=== PATIENT | male | born 1955 | race Caucasian/White ===

== ENCOUNTER 2018-12-08 14:19 | Emergency (ER) | payer MEDICAID ==
[~2018-12-08] VITALS: Ht 172.7 cm; Wt 111.0 kg
[~2018-12-08 14:19] MED LIST: AMIT-106 PO; CLOP75TA15 PO; LOSA25TA41 PO; METF-950 PO; SIMV20TA5 PO; TAMS0.4C32 PO; TRAM50TA2 PO; TRAZ-218 PO
--- NOTE | 2018-12-08 14:30 | NUR ---
LEVEL 2 STROKE ALERT CALLED
--- NOTE | 2018-12-08 14:41 | NUR ---
PT TO CT VIA WHEELCHAIR WITH COLD STORAGE SUPERINTENDENT NOW PER ORDERS
[2018-12-08 14:51] LABS: BASOPHILS % (AUTO) 0.6 % (0-1); EOSINOPHILS # (AUTO) 0.1 X10'3 (0-0.9); EOSINOPHILS % (AUTO) 1.6 % (0-6); HEMATOCRIT 35.8 % (42.0-52.0); HEMOGLOBIN 11.8 g/dl (14.0-17.9); LYMPHOCYTES # (AUTO) 1.5 X10'3 (1.1-4.8); LYMPHOCYTES % (AUTO) 19.6 % (21-51); MEAN CORPUSCULAR HEMOGLOBIN 30.5 PG (27.0-31.0); MEAN CORPUSCULAR HGB CONC 32.9 % (33.0-36.5); MEAN CORPUSCULAR VOLUME 92.7 FL (78-98); MONOCYTES # (AUTO) 0.5 X10'3 (0-0.9); MONOCYTES % (AUTO) 7.3 % (2-12); NEUTROPHILS # (AUTO) 5.4 X10'3 (1.8-7.7); NEUTROPHILS % (AUTO) 70.9 % (42-75); PLATELET COUNT 165 X10'3 (140-440); RED BLOOD COUNT 3.87 X10'6 (4.70-6.10); RED CELL DISTRIBUTION WIDTH 13.9 % (11.5-14.5); WHITE BLOOD COUNT 7.5 X10'3 (4.5-11.0)
[2018-12-08 14:59] LABS: INR 1.1 INR; PARTIAL THROMBOPLASTIN TIME 25 SECONDS (22-32)
[2018-12-08 15:02] LABS: ALANINE AMINOTRANSFERASE 30 U/L (12-78); ALBUMIN/GLOBULIN RATIO 1.1 (1.1-1.5); ALKALINE PHOSPHATASE 56 IU/L (46-116); ANION GAP 10 (8-16); ASPARTATE AMINO TRANSFERASE 14 U/L (10-37); BILIRUBIN,TOTAL 0.8 MG/DL (0.1-1.0); BLOOD UREA NITROGEN 11 MG/DL (7-18); CHLORIDE 106 MMOL/L (99-107); CREATININE 1.38 MG/DL (0.60-1.10); GLUCOSE 108 MG/DL (70-104); POTASSIUM 3.3 MMOL/L (3.5-5.1); SODIUM 144 MMOL/L (135-145); TOTAL CARBON DIOXIDE 27.6 MMOL/L (24-32); TOTAL PROTEIN 7.7 G/DL (6.4-8.2); eGFR 52 ML/MIN
[2018-12-08 15:05] LABS: TROPONIN I < 0.04 NG/ML (0.0-0.05)
[2018-12-08 15:52] LABS: CLARITY,URINE CLEAR (Clear); COLOR,URINE YELLOW (Yellow); GLUCOSE, URINE NEGATIVE (Neg); KETONES,URINE NEGATIVE (Neg); LEUKOCYTE ESTERASE ,URINE NEGATIVE (Neg); NITRITES, URINE NEGATIVE (Neg); OCCULT BLOOD,URINE NEGATIVE (Neg); PH,URINE 5.5 (4.8-8.0); PROTEIN,URINE NEGATIVE (Neg)
[2018-12-08 16:01] LABS: UA COLLECTION TYPE VOIDED
[2018-12-08 16:13] VITALS: BP 168/61
[2018-12-08] MEDS ORDERED: HYDR-4383 PO (16:46)
== END 2018-12-08 16:53 | disposition home or self-care (01) ==
LOC: ER 14:21
DX: R53.1 Weakness (principal); I10 Essential (primary) hypertension; E78.00 Pure hypercholesterolemia, unspecified; E11.9 Type 2 diabetes mellitus without complications; Z86.73 Personal history of transient ischemic attack (TIA), and cerebral infarction without residual deficits; Z98.890 Other specified postprocedural states; Z79.84 Long term (current) use of oral hypoglycemic drugs; Z79.899 Other long term (current) drug therapy; Z60.2 Problems related to living alone
CPT/HCPCS: 36415; 70450; 71045; 80053; 81003; 82948; 84484; 85025; 85610; 85730; 93005; 99284

== ENCOUNTER 2018-12-13 17:11 | Emergency (ER) | payer MEDICAID ==
[~2018-12-13] VITALS: Ht 172.7 cm; Wt 113.6 kg
[~2018-12-13 17:11] MED LIST changes: +HYDR-4383 PO
[2018-12-13 18:20] LABS: ALANINE AMINOTRANSFERASE 21 U/L (12-78); ALBUMIN 4.1 G/DL (3.4-5.0); ALBUMIN/GLOBULIN RATIO 1.1 (1.1-1.5); ALKALINE PHOSPHATASE 60 IU/L (46-116); ANION GAP 14 (8-16); ASPARTATE AMINO TRANSFERASE 15 U/L (10-37); BILIRUBIN,TOTAL 0.6 MG/DL (0.1-1.0); BLOOD UREA NITROGEN 16 MG/DL (7-18); BUN/CREATININE RATIO 12.2 (5.4-32.0); CALCIUM 9.3 MG/DL (8.5-10.1); CHLORIDE 104 MMOL/L (99-107); CREATININE 1.31 MG/DL (0.60-1.10); GLUCOSE 80 MG/DL (70-104); POTASSIUM 3.8 MMOL/L (3.5-5.1); SODIUM 142 MMOL/L (135-145); TOTAL CARBON DIOXIDE 23.9 MMOL/L (24-32); TOTAL PROTEIN 7.7 G/DL (6.4-8.2); eGFR 55 ML/MIN
[2018-12-13 18:22] LABS: INR 1.1 INR; PARTIAL THROMBOPLASTIN TIME 25 SECONDS (22-32); PROTHROMBIN TIME 10.7 SECONDS (9.0-12.0)
[2018-12-13 18:25] LABS: BASOPHILS % (AUTO) 0.3 % (0-1); EOSINOPHILS # (AUTO) 0.2 X10'3 (0-0.9); EOSINOPHILS % (AUTO) 2.9 % (0-6); HEMATOCRIT 35.5 % (42.0-52.0); HEMOGLOBIN 11.9 g/dl (14.0-17.9); LYMPHOCYTES # (AUTO) 1.4 X10'3 (1.1-4.8); MEAN CORPUSCULAR HGB CONC 33.4 % (33.0-36.5); MEAN CORPUSCULAR VOLUME 92.9 FL (78-98); MEAN PLATELET VOLUME 9.9 FL (7.4-10.4); MONOCYTES # (AUTO) 0.5 X10'3 (0-0.9); MONOCYTES % (AUTO) 6.8 % (2-12); NEUTROPHILS # (AUTO) 4.9 X10'3 (1.8-7.7); PLATELET COUNT 158 X10'3 (140-440); RED BLOOD COUNT 3.82 X10'6 (4.70-6.10); WHITE BLOOD COUNT 7.1 X10'3 (4.5-11.0)
[2018-12-13 18:59] VITALS: BP 119/73
== END 2018-12-13 19:51 | disposition home or self-care (01) ==
LOC: ER 17:12
DX: F11.23 Opioid dependence with withdrawal (principal); E78.00 Pure hypercholesterolemia, unspecified; I10 Essential (primary) hypertension; E11.9 Type 2 diabetes mellitus without complications; Z86.73 Personal history of transient ischemic attack (TIA), and cerebral infarction without residual deficits; Z85.038 Personal history of other malignant neoplasm of large intestine; Z98.890 Other specified postprocedural states; Z79.899 Other long term (current) drug therapy
CPT/HCPCS: 36415; 71045; 80053; 84484; 85025; 85610; 85730; 93005; 99284

== ENCOUNTER 2020-09-12 18:18 | Inpatient (IN) | payer MEDICAID ==
[~2020-09-12] VITALS: Ht 172.7 cm; Wt 96.8 kg
[~2020-09-12 18:18] MED LIST changes: -AMIT-106 PO; +AMIT25TA9 PO; +SIMV-42 PO; -SIMV20TA5 PO; -TRAZ-218 PO; +TRAZ-251 PO
[2020-09-12 21:21] LABS: BASOPHILS # (AUTO) 0.1 X10'3 (0-0.2); BASOPHILS % (AUTO) 0.4 % (0-1); EOSINOPHILS # (AUTO) 0.2 X10'3 (0-0.9); EOSINOPHILS % (AUTO) 1.7 % (0-6); HEMATOCRIT 34.1 % (42.0-52.0); HEMOGLOBIN 11.3 g/dl (14.0-17.9); LYMPHOCYTES % (AUTO) 6.8 % (21-51); MEAN CORPUSCULAR HEMOGLOBIN 30.8 PG (27.0-31.0); MEAN CORPUSCULAR VOLUME 93.4 FL (78-98); MEAN PLATELET VOLUME 8.4 FL (7.4-10.4); MONOCYTES # (AUTO) 1.1 X10'3 (0-0.9); MONOCYTES % (AUTO) 7.3 % (2-12); NEUTROPHILS # (AUTO) 12.6 X10'3 (1.8-7.7); NEUTROPHILS % (AUTO) 83.8 % (42-75); PLATELET COUNT 353 X10'3 (140-440); RED BLOOD COUNT 3.65 X10'6 (4.70-6.10); RED CELL DISTRIBUTION WIDTH 15.4 % (11.5-14.5); WHITE BLOOD COUNT 15.1 X10'3 (4.5-11.0)
[2020-09-12 21:30] LABS: ALANINE AMINOTRANSFERASE 58 U/L (12-78); ALBUMIN 2.7 G/DL (3.4-5.0); ALBUMIN/GLOBULIN RATIO 0.4 (1.1-1.5); ALKALINE PHOSPHATASE 94 IU/L (46-116); ANION GAP 21 (8-16); ASPARTATE AMINO TRANSFERASE 20 U/L (10-37); BILIRUBIN,TOTAL 1.2 MG/DL (0.1-1.0); BLOOD UREA NITROGEN 96 MG/DL (7-18); BUN/CREATININE RATIO 15.7 (5.4-32.0); CALCIUM 9.6 MG/DL (8.5-10.1); CHLORIDE 103 MMOL/L (99-107); CREATININE 6.11 MG/DL (0.60-1.10); GLUCOSE 99 MG/DL (70-104); LIPASE 50 U/L (73-393); POTASSIUM 5.6 MMOL/L (3.5-5.1); SODIUM 138 MMOL/L (135-145); eGFR 9 ML/MIN
[2020-09-12 21:32] LABS: TOTAL CARBON DIOXIDE 14.1 MMOL/L (24-32)
[2020-09-12 21:42] LABS: GLUCOSE, URINE NEGATIVE (Neg); KETONES,URINE NEGATIVE (Neg); LEUKOCYTE ESTERASE ,URINE MODERATE (Neg); NITRITES, URINE NEGATIVE (Neg); OCCULT BLOOD,URINE LARGE (Neg); PROTEIN,URINE 100 mg/dl (Neg)
[2020-09-12] MEDS ORDERED: normal saline 1000ml 1,000 ML IV ONE (21:45)
[2020-09-12] MEDS ORDERED: calcium gluconate inj. 2 GM in normal saline 100ml IV soln 80 ML IV ONE (21:45)
[2020-09-12 21:51] LABS: UA COLLECTION TYPE CLN CATCH MIDSTREAM
[2020-09-12] MEDS: CALCIUM GLUC 1gm/50ml NACL,iso 50 ML IV SCH ×2 (22:00→23:11)
[2020-09-12] MEDS ORDERED: ondansetron/PF 4mg/2ml inj IV ONE (22:05)
[2020-09-12] MEDS ORDERED: morphine 4 MG/ML inj SYRINge IV ONE (22:05)
[2020-09-12 22:06] LABS: COLOR,URINE RED (Yellow)
[2020-09-12 22:07] LABS: CLARITY,URINE Cloudy (Clear); SQUAMOUS EPITHELIAL CELL,UR FEW /LPF (FEW)
[2020-09-12 22:08] LABS: BACTERIA,URINE 4+ /HPF (Neg); RBC,URINE TNTC /HPF (0-2); WBC,URINE TNTC /HPF (0-4)
[2020-09-12 22:09] LABS: TRANSITIONAL EPI CELLS,URINE MODERATE /HPF; WBC CLUMPS,URINE MODERATE /HPF (NEGATIVE)
[2020-09-12] MEDS ORDERED: FLO0.4C PO (22:18)
[2020-09-12] MEDS ORDERED: CARV3.12 PO (22:18)
[2020-09-12 22:55] LABS: PLATELET ESTIMATE NORMAL; TOTAL CELLS COUNTED 100
[2020-09-12] MEDS ORDERED: mag hydrox/Alum hydrox/simeth 30ml oral suspension PO PRN (23:15)
[2020-09-12] MEDS ORDERED: ondansetron/PF 4mg/2ml inj IV PRN (23:15)
[2020-09-12] MEDS ORDERED: magnesium 4gm in 100ml NS 100 ML IV PRN (23:15)
[2020-09-12] MEDS ORDERED: potassium CL 10mEq/100ml bag 100 ML IV PRN ×2 (23:15)
[2020-09-12] MEDS ORDERED: normal saline 1000ml 1,000 ML IV SCH (23:15)
[2020-09-12] MEDS ORDERED: magnesium 2GM in 50ml NS 50 ML IV PRN (23:15)
[2020-09-12] MEDS ORDERED: potassium Cl 20 mEq SR tablet PO PRN ×2 (23:15)
[2020-09-12] MEDS ORDERED: ipratropium/albuterol 3ml nebule NEB PRN (23:15)
[2020-09-12] MEDS ORDERED: magnesium hydroxide 30ml (MOM) UD suspension PO PRN (23:15)
[2020-09-12] MEDS ORDERED: acetaminophen 325mg tablet PO PRN (23:15)
[2020-09-12 23:38] LABS: ALBUMIN 2.6 G/DL (3.4-5.0); ANION GAP 21 (8-16); BLOOD UREA NITROGEN 98 MG/DL (7-18); BUN/CREATININE RATIO 16.1 (5.4-32.0); CALCIUM 9.6 MG/DL (8.5-10.1); CHLORIDE 105 MMOL/L (99-107); CREATININE 6.07 MG/DL (0.60-1.10); GLUCOSE 99 MG/DL (70-104); POTASSIUM 5.7 MMOL/L (3.5-5.1); SODIUM 138 MMOL/L (135-145); eGFR 9 ML/MIN
--- NOTE | 2020-09-12 23:40 | NUR ---
TO CT VIA WC
[2020-09-12 23:41] LABS: TOTAL CARBON DIOXIDE 12.3 MMOL/L (24-32)
--- NOTE | 2020-09-12 23:46 | NUR ---
PAGER ID: [phone] MESSAGE: SIRI [phone] RE: RADAR BED 1, CRITICAL CO2 12.3.
--- NOTE | 2020-09-12 23:55 | NUR ---
PAGER ID: [phone] MESSAGE: [id number] [phone] RE: RADAR BED 1 NEEDS SOMETHING FOR BACK PAIN PLEASE.
[2020-09-13] MEDS: sodium bicarbonate (8.4%) inj. 150 MEQ in dextrose 5%-water 1,000 ML IV SCH ×3 (00:03→22:22)
[2020-09-13] MEDS ORDERED: HYDROmorphone 1 mg/ml syringe IV ONE (00:05)
[2020-09-13] MEDS ORDERED: CefTRIAXone/D5W-Rocephin 1gm 50 ML IV SCH (00:25)
[2020-09-13] MEDS ORDERED: MESSAGE TO PHARMACY PO ONE (00:30)
[2020-09-13] MEDS ORDERED: dextrose ORAL solution 15 GM/59 ML bottle PO PRN ×2 (00:30)
[2020-09-13] MEDS ORDERED: dextrose 50%-water 50ml dispensing syringe IV PRN ×2 (00:30)
[2020-09-13] MEDS ORDERED: insulin Lispro (HumaLOG) vial - multi-dose SQ SCH (00:30)
[2020-09-13] MEDS ORDERED: glucagon, human recombinant 1mg kit SUBCUT PRN (00:30)
--- NOTE | 2020-09-13 00:53 | NUR ---
I have received report from Monique, ED RN and had the opportunity to ask questions and assume patient care.
[2020-09-13 01:15] VITALS: BP 150/54
[2020-09-13 01:16] LABS: HEMOGLOBIN A1C 4.3 % (4.5-6.2)
--- NOTE | 2020-09-13 03:30 | NUR ---
Patient has not been able to void since admission to floor. Bladder scan performed, 186 mL. Will have patient attempt to use urinal.
--- NOTE | 2020-09-13 05:00 | NUR ---
Talked to November Mayank regarding patient being unable to void. Received order to straight cath PRN.
--- NOTE | 2020-09-13 05:45 | NUR ---
Patient is having some abdominal discomfort and agrees to straight cath. Straight cath performed, output 500 mL, straw colored urine with sediments noted. Patient tolerated well. Will continue to monitor patient.
[2020-09-13 06:21] LABS: BASOPHILS % (AUTO) 0.3 % (0-1); EOSINOPHILS # (AUTO) 0.2 X10'3 (0-0.9); EOSINOPHILS % (AUTO) 1.7 % (0-6); HEMATOCRIT 30.6 % (42.0-52.0); LYMPHOCYTES # (AUTO) 1.1 X10'3 (1.1-4.8); LYMPHOCYTES % (AUTO) 7.7 % (21-51); MEAN CORPUSCULAR HEMOGLOBIN 30.3 PG (27.0-31.0); MEAN CORPUSCULAR HGB CONC 32.7 g/dL (33.0-36.5); MEAN CORPUSCULAR VOLUME 92.6 FL (78-98); MEAN PLATELET VOLUME 8.2 FL (7.4-10.4); MONOCYTES % (AUTO) 7.3 % (2-12); NEUTROPHILS # (AUTO) 11.4 X10'3 (1.8-7.7); PLATELET COUNT 316 X10'3 (140-440); RED CELL DISTRIBUTION WIDTH 15.4 % (11.5-14.5); WHITE BLOOD COUNT 13.7 X10'3 (4.5-11.0)
[2020-09-13 06:26] LABS: ALBUMIN 2.3 G/DL (3.4-5.0); ANION GAP 17 (8-16); BLOOD UREA NITROGEN 95 MG/DL (7-18); BUN/CREATININE RATIO 16.3 (5.4-32.0); CALCIUM 9.1 MG/DL (8.5-10.1); CHLORIDE 105 MMOL/L (99-107); CREATININE 5.82 MG/DL (0.60-1.10); GLUCOSE 125 MG/DL (70-104); MAGNESIUM 2.1 MG/DL (1.5-2.4); POTASSIUM 5.3 MMOL/L (3.5-5.1); SODIUM 137 MMOL/L (135-145); TOTAL CARBON DIOXIDE 15.3 MMOL/L (24-32); eGFR 10 ML/MIN
--- NOTE | 2020-09-13 06:30 | NUR ---
Problems reprioritized. Patient report given, questions answered & plan of care reviewed with WILLOW Richardson.
--- NOTE | 2020-09-13 07:03 | NUR ---
Patient in room [facility]. I have received report from Brittney DAUGHERTY and had the opportunity to ask questions and assume patient care.
[2020-09-13 07:14] LABS: TOTAL CELLS COUNTED 100
[2020-09-13 07:15] LABS: ANISOCYTOSIS FEW; PLATELET ESTIMATE NORMAL; ROULEAUX 1+
[2020-09-13 08:00] VITALS: BP 131/52
[2020-09-13] MEDS: K and/or MAG REPLACEMENT MC SCH ×2 (08:00→20:00)
--- NOTE | 2020-09-13 08:44 | NUR ---
DM consult: Pt with A1c 4.3%, DM education not warranted. Will continue to follow. Addendum: 09/13/20 at [address] Amended: Links added.
[2020-09-13 08:59] LABS: PHOSPHORUS 5.7 MG/DL (2.3-4.5)
[2020-09-13] MEDS: clopidogrel 75mg tablet PO SCH (09:58)
[2020-09-13] MEDS: atorvastatin 10mg tablet PO SCH (09:58)
[2020-09-13] MEDS: tamsulosin 0.4mg capsule PO SCH (09:58)
[2020-09-13] MEDS: carVEDilol 3.125mg tablet PO SCH ×2 (09:58→19:09)
[2020-09-13] MEDS: HYDROcodone/acetaminophen 5mg/325mg tablet PO PRN ×2 (10:22→17:10)
[2020-09-13 11:00] VITALS: BP 122/71
[2020-09-13 12:07] LABS: ALBUMIN 2.3 G/DL (3.4-5.0); ANION GAP 13 (8-16); BLOOD UREA NITROGEN 97 MG/DL (7-18); BUN/CREATININE RATIO 16.3 (5.4-32.0); CALCIUM 9.1 MG/DL (8.5-10.1); CHLORIDE 107 MMOL/L (99-107); CREATININE 5.95 MG/DL (0.60-1.10); GLUCOSE 133 MG/DL (70-104); POTASSIUM 4.5 MMOL/L (3.5-5.1); SODIUM 138 MMOL/L (135-145); TOTAL CARBON DIOXIDE 17.6 MMOL/L (24-32); eGFR 10 ML/MIN
--- NOTE | 2020-09-13 14:52 | NUR ---
Permissions given by patient to speak with niece, Slim Olivera ([phone]), update given.
[2020-09-13] MEDS: piperacillin/tazo 3.375gm/50ml 50 ML IV SCH ×2 (16:18→23:23)
--- NOTE | 2020-09-13 17:55 | NUR ---
Galeana Cath placed per MD order. Pt tolerated well. Draining cloudy, light milady urine. Will continue to monitor.
[2020-09-13 18:15] VITALS: BP 101/50
--- NOTE | 2020-09-13 18:30 | NUR ---
Problems reprioritized. Patient report given, questions answered & plan of care reviewed with Brittney DAUGHERTY.
--- NOTE | 2020-09-13 18:31 | NUR ---
Patient in room [facility]. I have received report from WILLOW Richardson and had the opportunity to ask questions and assume patient care.
[2020-09-13] MEDS: lactobacillus rhamnosus 10,000 MMU CELLS/CAPSULE PO SCH (19:09)
[2020-09-13 19:10] LABS: ALBUMIN 2.2 G/DL (3.4-5.0); ANION GAP 15 (8-16); BLOOD UREA NITROGEN 93 MG/DL (7-18); BUN/CREATININE RATIO 15.8 (5.4-32.0); CHLORIDE 105 MMOL/L (99-107); CREATININE 5.87 MG/DL (0.60-1.10); GLUCOSE 125 MG/DL (70-104); POTASSIUM 4.5 MMOL/L (3.5-5.1); SODIUM 138 MMOL/L (135-145); TOTAL CARBON DIOXIDE 18.1 MMOL/L (24-32); eGFR 10 ML/MIN
[2020-09-13] MEDS: insulin glargine (Lantus) pen - multi-dose SQ SCH (21:00)
[2020-09-13] MEDS: amitriptyline 25mg tablet PO SCH (22:22)
[2020-09-13] MEDS: oxyCODONE IR 5mg (immed. release) tablet PO PRN (22:22)
[2020-09-13] MEDS: traZODone 50mg tablet PO SCH (22:22)
[2020-09-14 00:15] VITALS: BP 92/50
[2020-09-14 06:26] LABS: ALBUMIN 1.9 G/DL (3.4-5.0); ANION GAP 13 (8-16); BLOOD UREA NITROGEN 91 MG/DL (7-18); BUN/CREATININE RATIO 16.6 (5.4-32.0); CALCIUM 8.6 MG/DL (8.5-10.1); CHLORIDE 105 MMOL/L (99-107); CREATININE 5.47 MG/DL (0.60-1.10); GLUCOSE 110 MG/DL (70-104); MAGNESIUM 2.1 MG/DL (1.5-2.4); POTASSIUM 4.1 MMOL/L (3.5-5.1); SODIUM 140 MMOL/L (135-145); TOTAL CARBON DIOXIDE 22.5 MMOL/L (24-32); eGFR 11 ML/MIN
[2020-09-14 06:34] LABS: BASOPHILS % (AUTO) 0.3 % (0-1); EOSINOPHILS # (AUTO) 0.3 X10'3 (0-0.9); EOSINOPHILS % (AUTO) 2.6 % (0-6); HEMATOCRIT 25.1 % (42.0-52.0); HEMOGLOBIN 8.6 g/dl (14.0-17.9); LYMPHOCYTES % (AUTO) 9.9 % (21-51); MEAN CORPUSCULAR HEMOGLOBIN 31.3 PG (27.0-31.0); MEAN CORPUSCULAR HGB CONC 34.1 g/dL (33.0-36.5); MEAN CORPUSCULAR VOLUME 91.6 FL (78-98); MONOCYTES # (AUTO) 0.8 X10'3 (0-0.9); MONOCYTES % (AUTO) 7.5 % (2-12); NEUTROPHILS # (AUTO) 8.3 X10'3 (1.8-7.7); NEUTROPHILS % (AUTO) 79.7 % (42-75); PLATELET COUNT 287 X10'3 (140-440); RED BLOOD COUNT 2.74 X10'6 (4.70-6.10); RED CELL DISTRIBUTION WIDTH 14.8 % (11.5-14.5); WHITE BLOOD COUNT 10.4 X10'3 (4.5-11.0)
--- NOTE | 2020-09-14 06:43 | NUR ---
Problems reprioritized. Patient report given, questions answered & plan of care reviewed with WILLOW Garcia.
--- NOTE | 2020-09-14 06:52 | NUR ---
I have received report from Brittney DAUGHERTY and had the opportunity to ask questions and assume patient care
[2020-09-14 07:31] LABS: PLATELET ESTIMATE NORMAL; TOTAL CELLS COUNTED 100
[2020-09-14 07:32] LABS: ANISOCYTOSIS FEW
[2020-09-14 08:00] VITALS: BP 107/49
[2020-09-14] MEDS: K and/or MAG REPLACEMENT MC SCH ×2 (08:00→19:29)
[2020-09-14] MEDS: tamsulosin 0.4mg capsule PO SCH (08:40)
[2020-09-14] MEDS: clopidogrel 75mg tablet PO SCH (08:40)
[2020-09-14] MEDS: atorvastatin 10mg tablet PO SCH (08:40)
[2020-09-14] MEDS: carVEDilol 3.125mg tablet PO SCH ×2 (08:41→19:46)
[2020-09-14] MEDS: lactobacillus rhamnosus 10,000 MMU CELLS/CAPSULE PO SCH ×2 (08:41→19:44)
[2020-09-14] MEDS: levoFLOXACIN-Levaquin 250mg/D5 50 ML IV SCH (08:42)
[2020-09-14 11:00] VITALS: BP 104/50
[2020-09-14] MEDS: sodium bicarbonate (8.4%) inj. 150 MEQ in dextrose 5%-water 1,000 ML IV SCH ×2 (11:47→21:20)
[2020-09-14] MEDS: HYDROcodone/acetaminophen 5mg/325mg tablet PO PRN ×2 (11:50→19:43)
[2020-09-14 12:22] LABS: ALBUMIN 2.1 G/DL (3.4-5.0); ANION GAP 14 (8-16); BLOOD UREA NITROGEN 90 MG/DL (7-18); BUN/CREATININE RATIO 16.5 (5.4-32.0); CALCIUM 9.1 MG/DL (8.5-10.1); CHLORIDE 104 MMOL/L (99-107); CREATININE 5.47 MG/DL (0.60-1.10); GLUCOSE 97 MG/DL (70-104); POTASSIUM 4.3 MMOL/L (3.5-5.1); SODIUM 138 MMOL/L (135-145); TOTAL CARBON DIOXIDE 20.2 MMOL/L (24-32); eGFR 11 ML/MIN
[2020-09-14] MEDS: oxyCODONE IR 5mg (immed. release) tablet PO PRN (14:45)
[2020-09-14 18:00] VITALS: BP 109/51
[2020-09-14 18:28] LABS: ALBUMIN 1.9 G/DL (3.4-5.0); ANION GAP 9 (8-16); BLOOD UREA NITROGEN 86 MG/DL (7-18); BUN/CREATININE RATIO 16.2 (5.4-32.0); CALCIUM 8.6 MG/DL (8.5-10.1); CHLORIDE 104 MMOL/L (99-107); GLUCOSE 133 MG/DL (70-104); POTASSIUM 4.5 MMOL/L (3.5-5.1); SODIUM 140 MMOL/L (135-145); TOTAL CARBON DIOXIDE 27.4 MMOL/L (24-32); eGFR 11 ML/MIN
--- NOTE | 2020-09-14 18:30 | NUR ---
Patient in room [facility]. I have received report from WILLOW Garcia and had the opportunity to ask questions and assume patient care.
[2020-09-14] MEDS: insulin glargine (Lantus) pen - multi-dose SQ SCH (21:00)
[2020-09-14] MEDS: traZODone 50mg tablet PO SCH (21:18)
[2020-09-14] MEDS: amitriptyline 25mg tablet PO SCH (21:18)
[2020-09-15 00:15] VITALS: BP 117/54
[2020-09-15 02:17] LABS: ALBUMIN 2.2 G/DL (3.4-5.0); ANION GAP 9 (8-16); BLOOD UREA NITROGEN 80 MG/DL (7-18); BUN/CREATININE RATIO 15.7 (5.4-32.0); CALCIUM 9.1 MG/DL (8.5-10.1); CHLORIDE 103 MMOL/L (99-107); CREATININE 5.09 MG/DL (0.60-1.10); GLUCOSE 130 MG/DL (70-104); MAGNESIUM 2.1 MG/DL (1.5-2.4); SODIUM 140 MMOL/L (135-145); TOTAL CARBON DIOXIDE 27.7 MMOL/L (24-32); eGFR 12 ML/MIN
[2020-09-15 02:19] LABS: POTASSIUM 4.8 MMOL/L (3.5-5.1)
[2020-09-15] MEDS: HYDROcodone/acetaminophen 5mg/325mg tablet PO PRN (02:23)
[2020-09-15] MEDS: oxyCODONE IR 5mg (immed. release) tablet PO PRN ×2 (05:29→11:09)
[2020-09-15 05:35] LABS: BASOPHILS % (AUTO) 0.2 % (0-1); EOSINOPHILS # (AUTO) 0.2 X10'3 (0-0.9); EOSINOPHILS % (AUTO) 1.9 % (0-6); HEMATOCRIT 26.3 % (42.0-52.0); HEMOGLOBIN 8.6 g/dl (14.0-17.9); LYMPHOCYTES # (AUTO) 1.2 X10'3 (1.1-4.8); LYMPHOCYTES % (AUTO) 10.1 % (21-51); MEAN CORPUSCULAR HEMOGLOBIN 29.5 PG (27.0-31.0); MEAN CORPUSCULAR HGB CONC 32.6 g/dL (33.0-36.5); MEAN CORPUSCULAR VOLUME 90.3 FL (78-98); MEAN PLATELET VOLUME 7.9 FL (7.4-10.4); MONOCYTES # (AUTO) 0.9 X10'3 (0-0.9); MONOCYTES % (AUTO) 7.3 % (2-12); NEUTROPHILS # (AUTO) 9.5 X10'3 (1.8-7.7); NEUTROPHILS % (AUTO) 80.5 % (42-75); PLATELET COUNT 284 X10'3 (140-440); RED BLOOD COUNT 2.91 X10'6 (4.70-6.10); RED CELL DISTRIBUTION WIDTH 14.5 % (11.5-14.5); WHITE BLOOD COUNT 11.8 X10'3 (4.5-11.0)
--- NOTE | 2020-09-15 06:43 | NUR ---
Patient in room [facility]. I have received report from Brittney DAUGHERTY and had the opportunity to ask questions and assume patient care.
--- NOTE | 2020-09-15 06:49 | NUR ---
Student documentation: I have reviewed and agree with all interventions, assessments performed and documented by Pal Kelly Student Nurse.
--- NOTE | 2020-09-15 06:50 | NUR ---
Student Medication Administration: For this medication-pass time frame, all medication were reviewed, dispensed, administered and documented per hospital policy by Pal Kelly Student Nurse.
--- NOTE | 2020-09-15 06:50 | NUR ---
Problems reprioritized. Patient report given, questions answered & plan of care reviewed with WILLOW Salazar.
[2020-09-15] MEDS: tamsulosin 0.4mg capsule PO SCH (07:51)
[2020-09-15] MEDS: levoFLOXACIN-Levaquin 250mg/D5 50 ML IV SCH (07:51)
[2020-09-15] MEDS: carVEDilol 3.125mg tablet PO SCH ×2 (07:52→20:07)
[2020-09-15] MEDS: lactobacillus rhamnosus 10,000 MMU CELLS/CAPSULE PO SCH ×2 (07:52→20:07)
[2020-09-15] MEDS: atorvastatin 10mg tablet PO SCH (07:52)
[2020-09-15] MEDS: clopidogrel 75mg tablet PO SCH (07:52)
[2020-09-15 08:00] VITALS: BP 121/82
[2020-09-15] MEDS: K and/or MAG REPLACEMENT MC SCH ×2 (08:00→20:00)
[2020-09-15] MEDS: sodium bicarbonate (8.4%) inj. 150 MEQ in dextrose 5%-water 1,000 ML IV SCH (11:09)
[2020-09-15 12:00] VITALS: BP 128/53
--- NOTE | 2020-09-15 18:20 | NUR ---
Patient in room [facility]. I have received report from WILLOW Salazar and had the opportunity to ask questions and assume patient care.
--- NOTE | 2020-09-15 18:40 | NUR ---
Problems reprioritized. Patient report given, questions answered & plan of care reviewed with Valentina DAUGHERTY.
[2020-09-15 19:09] VITALS: BP 130/45
[2020-09-15] MEDS: traZODone 50mg tablet PO SCH (20:07)
[2020-09-15] MEDS: amitriptyline 25mg tablet PO SCH (20:07)
[2020-09-15] MEDS: insulin glargine (Lantus) pen - multi-dose SQ SCH (20:13)
[2020-09-15 23:30] VITALS: BP 130/45
[2020-09-16] MEDS: oxyCODONE IR 5mg (immed. release) tablet PO PRN ×3 (01:33→16:43)
[2020-09-16 05:21] LABS: BASOPHILS % (AUTO) 0.2 % (0-1); EOSINOPHILS # (AUTO) 0.3 X10'3 (0-0.9); EOSINOPHILS % (AUTO) 2.1 % (0-6); HEMATOCRIT 28.5 % (42.0-52.0); HEMOGLOBIN 9.4 g/dl (14.0-17.9); LYMPHOCYTES # (AUTO) 1.4 X10'3 (1.1-4.8); MEAN CORPUSCULAR HEMOGLOBIN 30.2 PG (27.0-31.0); MEAN CORPUSCULAR HGB CONC 33.1 g/dL (33.0-36.5); MEAN CORPUSCULAR VOLUME 91.2 FL (78-98); MONOCYTES # (AUTO) 0.9 X10'3 (0-0.9); MONOCYTES % (AUTO) 7.4 % (2-12); NEUTROPHILS # (AUTO) 9.9 X10'3 (1.8-7.7); NEUTROPHILS % (AUTO) 79.3 % (42-75); PLATELET COUNT 319 X10'3 (140-440); RED BLOOD COUNT 3.12 X10'6 (4.70-6.10); RED CELL DISTRIBUTION WIDTH 14.8 % (11.5-14.5); WHITE BLOOD COUNT 12.5 X10'3 (4.5-11.0)
--- NOTE | 2020-09-16 06:26 | NUR ---
Problems reprioritized. Patient report given, questions answered & plan of care reviewed with WILLOW Taylor.
--- NOTE | 2020-09-16 06:30 | NUR ---
Patient in room [facility]. I have received report from WILLOW Montgomery and had the opportunity to ask questions and assume patient care.
[2020-09-16 07:47] VITALS: BP 146/63
[2020-09-16] MEDS: K and/or MAG REPLACEMENT MC SCH ×2 (08:00→20:00)
[2020-09-16 08:10] LABS: ALBUMIN 2.2 G/DL (3.4-5.0); ANION GAP 10 (8-16); BLOOD UREA NITROGEN 65 MG/DL (7-18); BUN/CREATININE RATIO 14.3 (5.4-32.0); CALCIUM 9.4 MG/DL (8.5-10.1); CHLORIDE 105 MMOL/L (99-107); CREATININE 4.54 MG/DL (0.60-1.10); GLUCOSE 93 MG/DL (70-104); POTASSIUM 4.3 MMOL/L (3.5-5.1); SODIUM 146 MMOL/L (135-145); TOTAL CARBON DIOXIDE 30.8 MMOL/L (24-32); eGFR 13 ML/MIN
[2020-09-16] MEDS: carVEDilol 3.125mg tablet PO SCH ×2 (09:09→20:23)
[2020-09-16] MEDS: levoFLOXACIN-Levaquin 250mg/D5 50 ML IV SCH (09:10)
[2020-09-16] MEDS: lactobacillus rhamnosus 10,000 MMU CELLS/CAPSULE PO SCH ×2 (09:10→20:23)
[2020-09-16] MEDS: atorvastatin 10mg tablet PO SCH (09:10)
[2020-09-16] MEDS: clopidogrel 75mg tablet PO SCH (09:10)
[2020-09-16] MEDS: tamsulosin 0.4mg capsule PO SCH (09:10)
[2020-09-16 11:20] VITALS: BP 99/58
--- NOTE | 2020-09-16 14:30 | NUR ---
Spoke to patient's niece Slim and told her that the patient's stents are in good place per CT scan and that we are treating patient's UTI with Levaquin abx. Told niece that patient is walking with PT and that we are trying to get the patient placed in a rehabilitation facility. [facility] sounds like the most likely option per case management as the patient's insurance ([employer]) is accepted here.
--- NOTE | 2020-09-16 18:00 | NUR ---
Patient in room [facility]. I have received report from Claudia DAUGHERTY and had the opportunity to ask questions and assume patient care.
--- NOTE | 2020-09-16 18:26 | NUR ---
Problems reprioritized. Patient report given, questions answered & plan of care reviewed with WILLOW Robles.
[2020-09-16 19:30] VITALS: BP 124/62
[2020-09-16] MEDS: traZODone 50mg tablet PO SCH (20:23)
[2020-09-16] MEDS: amitriptyline 25mg tablet PO SCH (20:23)
[2020-09-16] MEDS: insulin glargine (Lantus) pen - multi-dose SQ SCH (21:00)
[2020-09-17] VITALS: BP 123/54
[2020-09-17 05:21] LABS: BASOPHILS % (AUTO) 0.4 % (0-1); EOSINOPHILS # (AUTO) 0.2 X10'3 (0-0.9); EOSINOPHILS % (AUTO) 1.9 % (0-6); HEMATOCRIT 27.2 % (42.0-52.0); HEMOGLOBIN 9.1 g/dl (14.0-17.9); LYMPHOCYTES # (AUTO) 1.1 X10'3 (1.1-4.8); LYMPHOCYTES % (AUTO) 10.2 % (21-51); MEAN CORPUSCULAR HEMOGLOBIN 30.4 PG (27.0-31.0); MEAN CORPUSCULAR HGB CONC 33.3 g/dL (33.0-36.5); MEAN CORPUSCULAR VOLUME 91.3 FL (78-98); MEAN PLATELET VOLUME 7.8 FL (7.4-10.4); MONOCYTES # (AUTO) 0.8 X10'3 (0-0.9); MONOCYTES % (AUTO) 7.6 % (2-12); NEUTROPHILS # (AUTO) 8.8 X10'3 (1.8-7.7); NEUTROPHILS % (AUTO) 79.9 % (42-75); PLATELET COUNT 313 X10'3 (140-440); RED BLOOD COUNT 2.99 X10'6 (4.70-6.10); RED CELL DISTRIBUTION WIDTH 14.4 % (11.5-14.5)
--- NOTE | 2020-09-17 06:20 | NUR ---
Problems reprioritized. Patient report given, questions answered & plan of care reviewed with Preston DAUGHERTY.
[2020-09-17 06:30] VITALS: BP 145/56
--- NOTE | 2020-09-17 06:33 | NUR ---
Patient in room [facility]. I have received report from WILLOW Robles and had the opportunity to ask questions and assume patient care.
--- NOTE | 2020-09-17 06:36 | NUR ---
Patient in room [facility]. I have received report from WILLOW Robles and had the opportunity to ask questions and assume patient care.
[2020-09-17 07:45] LABS: ALBUMIN 2.1 G/DL (3.4-5.0); ANION GAP 13 (8-16); BLOOD UREA NITROGEN 60 MG/DL (7-18); BUN/CREATININE RATIO 15.1 (5.4-32.0); CALCIUM 9.2 MG/DL (8.5-10.1); CHLORIDE 107 MMOL/L (99-107); CREATININE 3.97 MG/DL (0.60-1.10); GLUCOSE 81 MG/DL (70-104); POTASSIUM 4.6 MMOL/L (3.5-5.1); SODIUM 148 MMOL/L (135-145); TOTAL CARBON DIOXIDE 27.9 MMOL/L (24-32); eGFR 15 ML/MIN
[2020-09-17] MEDS: carVEDilol 3.125mg tablet PO SCH (07:54)
[2020-09-17] MEDS: atorvastatin 10mg tablet PO SCH (07:54)
[2020-09-17] MEDS: lactobacillus rhamnosus 10,000 MMU CELLS/CAPSULE PO SCH (07:54)
[2020-09-17] MEDS: tamsulosin 0.4mg capsule PO SCH (07:54)
[2020-09-17] MEDS: clopidogrel 75mg tablet PO SCH (07:54)
[2020-09-17] MEDS: oxyCODONE IR 5mg (immed. release) tablet PO PRN ×2 (07:56→12:39)
[2020-09-17] MEDS: levoFLOXACIN-Levaquin 250mg/D5 50 ML IV SCH (07:57)
[2020-09-17] MEDS: K and/or MAG REPLACEMENT MC SCH (08:00)
[2020-09-17 11:21] VITALS: BP 129/58
--- NOTE | 2020-09-17 12:22 | NUR ---
Called to [facility] and gave report to Nurse Tse. All questions answered.
--- NOTE | 2020-09-17 12:45 | NUR ---
Student documentation: I have reviewed and agree with all interventions, assessments performed and documented by SN DEMI.
--- NOTE | 2020-09-17 12:45 | NUR ---
Student Medication Administration: For this medication-pass time frame, all medication were reviewed, dispensed, administered and documented per hospital policy by SN DEMI.
--- NOTE | 2020-09-17 13:32 | NUR ---
Patient alert and oriented with no complaints. Pain medication effective for pain. dc'd with all personal belongings via gurney accompanied by [facility]2 [employer] staff to [facility]. Patient reports he called family to let them know but if they call back that it is okay to let family know he was transferred to [facility]. Brown catheter patent and draining to gravity, brown catheter emptied prior to transfer.
--- NOTE | 2020-09-17 13:32 | NUR ---
Patient was DC with all personal belongings via [employer]. Patient reported that pain intervention was effective.
== END 2020-09-17 13:31 | DRG 469 ==
LOC: ER 18:20 → ED HOLD 23:15 → SUR 3N 09-13 01:10
PROVIDERS: ADMIT Family Medicine; ATTEND Internal Medicine
DX: N17.9 Acute kidney failure, unspecified (principal); N18.9 Chronic kidney disease, unspecified; N40.0 Benign prostatic hyperplasia without lower urinary tract symptoms; E11.22 Type 2 diabetes mellitus with diabetic chronic kidney disease; I12.9 Hypertensive chronic kidney disease with stage 1 through stage 4 chronic kidney disease, or unspecified chronic kidney disease; E87.5 Hyperkalemia; N13.6 Pyonephrosis; G47.00 Insomnia, unspecified; E11.65 Type 2 diabetes mellitus with hyperglycemia; B95.2 Enterococcus as the cause of diseases classified elsewhere; E78.00 Pure hypercholesterolemia, unspecified; E78.5 Hyperlipidemia, unspecified; E87.2 Acidosis; Z96.651 Presence of right artificial knee joint; F17.200 Nicotine dependence, unspecified, uncomplicated; M19.90 Unspecified osteoarthritis, unspecified site; Z66 Do not resuscitate; Z79.02 Long term (current) use of antithrombotics/antiplatelets; Z80.3 Family history of malignant neoplasm of breast; Z85.038 Personal history of other malignant neoplasm of large intestine
CPT/HCPCS: 36415; 73502; 74176; 76775; 80048; 80053; 81001; 82570; 82948; 83036; 83690; 83735; 84100; 84145; 84300; 85007; 85025; 87077; 87081; 87088; 87186; 93005; 94760; 96374; 97116; 97161; 97530; 99285; G0378; J0696; J1170; J1815; J1956; J2270; J2405; J2543; J7030

== ENCOUNTER 2021-11-25 11:09 | Day surgery (SDC) | payer MEDICARE, MEDICAID ==
[~2021-11-25] VITALS: Ht 172.7 cm; Wt 94.2 kg
[~2021-11-25 11:09] MED LIST changes: +CARV3.12 PO; +FLO0.4C PO; -HYDR-4383 PO; -LOSA25TA41 PO; -METF-950 PO; -TAMS0.4C32 PO; -TRAM50TA2 PO
[2021-11-25] MEDS ORDERED: CALC668T PO (11:44)
[2021-11-25] MEDS ORDERED: FERR-119 PO (11:44)
[2021-11-25] MEDS ORDERED: LIDOcaine 1% 30ml preserv. free vial SQ STA (12:00)
[2021-11-25] MEDS ORDERED: midazolam 1 mg/ML 2ml injection ONE (12:19)
[2021-11-25] MEDS ORDERED: fentaNYL/PF 50MCG/1 ML 2ML syringe ONE (12:19)
[2021-11-25] MEDS ORDERED: heparin 1,000unit/ml 10ml vial 10 ML ONE (12:19)
[2021-11-25 13:25] VITALS: BP_SYST 106; BP_SYST 126; BP_DIAS 67; BP_DIAS 71
[2021-11-25 13:56] VITALS: BP 134/58
[2021-11-25 14:10] VITALS: BP 141/57
== END 2021-11-25 14:30 | disposition home or self-care (01) ==
LOC: SSTAY O 11:09
PROVIDERS: ATTEND Radiology Diagnostic Radiology
DX: E11.22 Type 2 diabetes mellitus with diabetic chronic kidney disease (principal); N18.6 End stage renal disease; Z85.038 Personal history of other malignant neoplasm of large intestine; Z86.73 Personal history of transient ischemic attack (TIA), and cerebral infarction without residual deficits; Z79.01 Long term (current) use of anticoagulants; Z79.899 Other long term (current) drug therapy; Z80.3 Family history of malignant neoplasm of breast
CPT/HCPCS: 36558; 76937; 77001; 99152; 99153; C1750; C1769; C1894; J1644; J2250; J3010; A9270

== ENCOUNTER 2022-03-04 11:06 | Day surgery (SDC) | payer MEDICARE, MEDICAID ==
[~2022-03-04] VITALS: Ht 172.7 cm; Wt 98.8 kg
[~2022-03-04 11:06] MED LIST changes: +CALC668T PO; +FERR-119 PO
[2022-03-04] MEDS ORDERED: normal saline 1000ml 1,000 ML IV PRN (11:30)
[2022-03-04 11:40] VITALS: BP 154/83
[2022-03-04] MEDS ORDERED: heparin 1,000unit/ml 10ml vial 10 ML ONE (11:50)
[2022-03-04] MEDS ORDERED: LIDOcaine 1% (10mg/ml)w/preservative inj. 20ml MDV ONE (11:50)
[2022-03-04] MEDS ORDERED: fentaNYL/PF 50MCG/1 ML 2ML syringe ONE (12:03)
[2022-03-04 12:40] VITALS: BP 150/58
[2022-03-04 12:55] VITALS: BP 149/74
[2022-03-04 13:09] VITALS: BP 148/71
[2022-03-04 13:24] VITALS: BP 142/73
[2022-03-04 13:39] VITALS: BP 146/70
== END 2022-03-04 13:55 | disposition home or self-care (01) ==
LOC: SSTAY O 11:06
PROVIDERS: ATTEND Radiology Vascular & Interventional Radiology
DX: T82.49XA Other complication of vascular dialysis catheter, initial encounter (principal); N18.6 End stage renal disease; Y83.8 Other surgical procedures as the cause of abnormal reaction of the patient, or of later complication, without mention of misadventure at the time of the procedure; Y92.89 Other specified places as the place of occurrence of the external cause
CPT/HCPCS: 36581; 77001; C1750; C1769; J1644; J3010; J3490

== ENCOUNTER 2022-03-13 12:33 | Day surgery (SDC) | payer MEDICARE, MEDICAID ==
[~2022-03-13] VITALS: Ht 172.7 cm; Wt 97.9 kg
[~2022-03-13 12:33] MED LIST changes: -FERR-119 PO
[2022-03-13 12:50] VITALS: BP 150/79
[2022-03-13] MEDS ORDERED: ceFAZolin inj. 2,000 MG in normal saline soln 50 ML IV ONE (13:00)
[2022-03-13] MEDS ORDERED: DEXTROSE IV ONE ×2 (13:20)
[2022-03-13] MEDS ORDERED: CEFAZOLIN 2000 MG IV ONE ×2 (13:20)
[2022-03-13] MEDS ORDERED: LIDOcaine 1%/PF 5ML 10 MG/ML VIAL ONE (14:07)
[2022-03-13] MEDS ORDERED: midazolam 1 mg/ML 2ml injection ONE (14:07)
[2022-03-13] MEDS ORDERED: fentaNYL/PF 50MCG/1 ML 2ML syringe ONE (14:07)
[2022-03-13] MEDS ORDERED: heparin 1,000unit/ml 10ml vial 10 ML ONE (14:16)
[2022-03-13] MEDS ORDERED: iohexol 300 MG/1 ML 50ml polymer ONE (14:46)
[2022-03-13 15:19] VITALS: BP 147/55
== END 2022-03-13 15:25 | disposition home or self-care (01) ==
LOC: SSTAY O 12:33
PROVIDERS: ATTEND Preventive Medicine Aerospace Medicine
DX: T82.49XA Other complication of vascular dialysis catheter, initial encounter (principal); N18.6 End stage renal disease; Y83.8 Other surgical procedures as the cause of abnormal reaction of the patient, or of later complication, without mention of misadventure at the time of the procedure; Y92.89 Other specified places as the place of occurrence of the external cause
CPT/HCPCS: 36581; 77001; C1750; C1769; J1644; J3490; Q9967; A9270; J2250; J3010

== ENCOUNTER 2022-04-08 10:33 | Emergency (ER) | payer MEDICARE, MEDICAID ==
[~2022-04-08] VITALS: Ht 172.7 cm; Wt 81.8 kg
[2022-04-08 13:40] LABS: BASOPHILS % (AUTO) 0.4 % (0-1); EOSINOPHILS # (AUTO) 0.2 X10'3 (0-0.9); EOSINOPHILS % (AUTO) 1.6 % (0-6); HEMATOCRIT 38.4 % (42.0-52.0); HEMOGLOBIN 12.1 g/dl (14.0-17.9); LYMPHOCYTES # (AUTO) 0.9 X10'3 (1.1-4.8); LYMPHOCYTES % (AUTO) 8.6 % (21-51); MEAN CORPUSCULAR HEMOGLOBIN 29.7 PG (27.0-31.0); MEAN CORPUSCULAR HGB CONC 31.4 g/dL (33.0-36.5); MEAN CORPUSCULAR VOLUME 94.4 FL (78-98); MEAN PLATELET VOLUME 7.6 FL (7.4-10.4); MONOCYTES # (AUTO) 0.8 X10'3 (0-0.9); MONOCYTES % (AUTO) 7.4 % (2-12); NEUTROPHILS # (AUTO) 8.4 X10'3 (1.8-7.7); PLATELET COUNT 357 X10'3 (140-440); RED BLOOD COUNT 4.07 X10'6 (4.70-6.10); RED CELL DISTRIBUTION WIDTH 18.9 % (11.5-14.5); WHITE BLOOD COUNT 10.3 X10'3 (4.5-11.0)
[2022-04-08] MEDS ORDERED: oxyCODONE IR 5mg (immed. release) tablet PO ONE (13:45)
[2022-04-08 13:53] LABS: ALANINE AMINOTRANSFERASE 10 U/L (12-78); ALBUMIN 3.3 G/DL (3.4-5.0); ALBUMIN/GLOBULIN RATIO 0.6 (1.1-1.5); ALKALINE PHOSPHATASE 65 IU/L (46-116); ANION GAP 18 (8-16); APTT 30 SECONDS (22-32); ASPARTATE AMINO TRANSFERASE 5 U/L (10-37); BILIRUBIN,TOTAL 0.3 MG/DL (0.1-1.0); BLOOD UREA NITROGEN 77 MG/DL (7-18); BUN/CREATININE RATIO 9.3 (5.4-32.0); CALCIUM 9.3 MG/DL (8.5-10.1); CHLORIDE 105 MMOL/L (99-107); CREATININE 8.29 MG/DL (0.60-1.10); GLUCOSE 87 MG/DL (70-104); POTASSIUM 5.3 MMOL/L (3.5-5.1); SODIUM 141 MMOL/L (135-145); TOTAL CARBON DIOXIDE 17.6 MMOL/L (24-32); TOTAL PROTEIN 8.7 G/DL (6.4-8.2); eGFR 7 ML/MIN
[2022-04-08] MEDS ORDERED: ondansetron/PF 4mg/2ml inj IV ONE (20:00)
[2022-04-08] MEDS ORDERED: morphine 4 MG/ML inj SYRINge IV ONE (20:00)
[2022-04-08] MEDS ORDERED: HYDR-3965 PO (20:57)
[2022-04-08 21:27] VITALS: BP 145/85
== END 2022-04-08 21:00 | disposition home or self-care (01) ==
LOC: ER 10:34
DX: S30.1XXA Contusion of abdominal wall, initial encounter (principal); R07.81 Pleurodynia; R10.31 Right lower quadrant pain; N18.9 Chronic kidney disease, unspecified; Z98.890 Other specified postprocedural states; Z60.2 Problems related to living alone; Z79.899 Other long term (current) drug therapy; W18.30XA Fall on same level, unspecified, initial encounter; Y93.89 Activity, other specified; Y92.89 Other specified places as the place of occurrence of the external cause; Y99.8 Other external cause status
CPT/HCPCS: 36415; 74176; 80053; 85025; 85610; 85730; 96374; 96375; 99284; J2270; J2405

== ENCOUNTER 2022-05-06 03:13 | Emergency (ER) | payer MEDICARE, MEDICAID ==
[~2022-05-06] VITALS: Ht 172.7 cm; Wt 93.0 kg
[~2022-05-06 03:13] MED LIST changes: +HYDR-3965 PO
[2022-05-06 03:16] VITALS: BP 142/70
--- NOTE | 2022-05-06 06:30 | NUR ---
FIRST CONTACT WITH PT, FOUND SITTING AT END OF BED. PT BELIEVES THAT HE IS WITHDRAWING FROM [facility]. HAS BEEN ON [facility] SINCE NOVEMBER. STATES HE HAS NOT SLEPT SINCE WEDNESDAY. A/OX4, BREATHING ON RA, NO DISTRESS.
[2022-05-06] MEDS ORDERED: HYDROcodone/acetaminophen 5mg/325mg tablet PO ONE (06:45)
[2022-05-06] MEDS ORDERED: LIDO700A47 TD (07:04)
--- NOTE | 2022-05-06 07:22 | NUR ---
PT MEDICATED WITH [facility]. JAIME REYNAGA WILL COME TO PICK PT UP APPROX 30 MIN FROM NOW.
== END 2022-05-06 07:45 | disposition home or self-care (01) ==
LOC: ER 03:14
DX: S32.9XXD Fracture of unspecified parts of lumbosacral spine and pelvis, subsequent encounter for fracture with routine healing (principal); M54.50 Low back pain, unspecified; G89.29 Other chronic pain; N18.6 End stage renal disease; F17.200 Nicotine dependence, unspecified, uncomplicated; Z86.73 Personal history of transient ischemic attack (TIA), and cerebral infarction without residual deficits; Z99.2 Dependence on renal dialysis; Z60.2 Problems related to living alone; Z85.038 Personal history of other malignant neoplasm of large intestine; Z98.890 Other specified postprocedural states; Z79.899 Other long term (current) drug therapy; W19.XXXD Unspecified fall, subsequent encounter
CPT/HCPCS: 99283

== ENCOUNTER 2022-05-08 11:57 | Day surgery (SDC) | payer MEDICARE, MEDICAID ==
[2022-05-08] VITALS (7 sets, daily range): BP systolic 123–135; BP diastolic 56–66
[~2022-05-08] VITALS: Ht 172.7 cm; Wt 90.2 kg
[~2022-05-08 11:57] MED LIST changes: +LIDO700A47 TD
[2022-05-08] MEDS ORDERED: LIDOcaine 1%/PF 5ML 10 MG/ML VIAL ONE (13:34)
[2022-05-08] MEDS ORDERED: fentaNYL/PF 50MCG/1 ML 2ML syringe ONE (13:34)
[2022-05-08] MEDS ORDERED: heparin 1,000unit/ml 10ml vial 10 ML ONE (13:34)
[2022-05-08] MEDS ORDERED: midazolam 1 mg/ML 2ml injection ONE (13:34)
[2022-05-08] MEDS ORDERED: IOHEXOL 300 MG/ML 30ML INFUS..BTL IV ONE (13:37)
== END 2022-05-08 16:00 | disposition home or self-care (01) ==
LOC: SSTAY O 11:57
PROVIDERS: ATTEND Radiology Vascular & Interventional Radiology
DX: T82.49XA Other complication of vascular dialysis catheter, initial encounter (principal); I87.1 Compression of vein; Z79.899 Other long term (current) drug therapy; Z83.3 Family history of diabetes mellitus; Y83.8 Other surgical procedures as the cause of abnormal reaction of the patient, or of later complication, without mention of misadventure at the time of the procedure; Y92.89 Other specified places as the place of occurrence of the external cause
CPT/HCPCS: 36581; 37248; 75827; 77001; 99152; C1725; C1750; C1769; C1894; J1644; J2250; J3010; J3490; J7030; Q9967; 99153; A4620; A9270

== ENCOUNTER 2022-05-10 18:32 | Emergency (ER) | payer MEDICARE, MEDICAID ==
[~2022-05-10] VITALS: Ht 172.7 cm; Wt 91.0 kg
[~2022-05-10 18:32] MED LIST changes: -CLOP75TA15 PO
[2022-05-10 19:11] LABS: BASOPHILS # (AUTO) 0.1 X10'3 (0-0.2); BASOPHILS % (AUTO) 0.7 % (0-1); EOSINOPHILS # (AUTO) 0.2 X10'3 (0-0.9); EOSINOPHILS % (AUTO) 2.6 % (0-6); HEMATOCRIT 28.9 % (42.0-52.0); HEMOGLOBIN 9.6 g/dl (14.0-17.9); LYMPHOCYTES # (AUTO) 0.9 X10'3 (1.1-4.8); LYMPHOCYTES % (AUTO) 11.8 % (21-51); MEAN CORPUSCULAR HEMOGLOBIN 31.1 PG (27.0-31.0); MEAN CORPUSCULAR HGB CONC 33.2 g/dL (33.0-36.5); MEAN CORPUSCULAR VOLUME 93.7 FL (78-98); MEAN PLATELET VOLUME 7.3 FL (7.4-10.4); MONOCYTES # (AUTO) 0.8 X10'3 (0-0.9); MONOCYTES % (AUTO) 11.5 % (2-12); NEUTROPHILS # (AUTO) 5.3 X10'3 (1.8-7.7); NEUTROPHILS % (AUTO) 73.4 % (42-75); PLATELET COUNT 306 X10'3 (140-440); RED BLOOD COUNT 3.08 X10'6 (4.70-6.10); WHITE BLOOD COUNT 7.3 X10'3 (4.5-11.0)
[2022-05-10 19:27] LABS: ALANINE AMINOTRANSFERASE 6 U/L (12-78); ALBUMIN 2.8 G/DL (3.4-5.0); ALBUMIN/GLOBULIN RATIO 0.6 (1.1-1.5); ALKALINE PHOSPHATASE 53 IU/L (46-116); ANION GAP 12 (8-16); ASPARTATE AMINO TRANSFERASE 15 U/L (10-37); BILIRUBIN,TOTAL 0.4 MG/DL (0.1-1.0); BLOOD UREA NITROGEN 36 MG/DL (7-18); BUN/CREATININE RATIO 7.2 (5.4-32.0); CALCIUM 8.9 MG/DL (8.5-10.1); CHLORIDE 106 MMOL/L (99-107); GLUCOSE 98 MG/DL (70-104); POTASSIUM 3.2 MMOL/L (3.5-5.1); SODIUM 140 MMOL/L (135-145); TOTAL PROTEIN 7.6 G/DL (6.4-8.2); eGFR 12 ML/MIN
[2022-05-10 21:57] VITALS: BP 118/66
== END 2022-05-10 22:30 | disposition home or self-care (01) ==
LOC: ER 18:32
DX: R55 Syncope and collapse (principal); N18.9 Chronic kidney disease, unspecified; Z86.73 Personal history of transient ischemic attack (TIA), and cerebral infarction without residual deficits; Z98.890 Other specified postprocedural states; Z85.038 Personal history of other malignant neoplasm of large intestine; Z99.2 Dependence on renal dialysis; Z79.899 Other long term (current) drug therapy
CPT/HCPCS: 36415; 71045; 80053; 84484; 85025; 93005; 99285

== ENCOUNTER 2022-10-02 06:31 | Day surgery (SDC) | payer MEDICARE, MEDICAID ==
[~2022-10-02] VITALS: Ht 172.7 cm; Wt 90.2 kg
[~2022-10-02 06:31] MED LIST changes: -HYDR-3965 PO; -LIDO700A47 TD
[2022-10-02] MEDS ORDERED: HYDR-3965 PO (07:44)
[2022-10-02] MEDS ORDERED: SODI650T29 PO (07:44)
[2022-10-02] MEDS ORDERED: FERR325T28 PO (07:44)
[2022-10-02] MEDS ORDERED: FOLI1TAB34 PO (07:44)
[2022-10-02] MEDS ORDERED: CLOP75TA34 PO (07:44)
[2022-10-02 07:54] VITALS: BP 147/79
[2022-10-02] MEDS ORDERED: iohexol 300mg/ml 100ml inj. ONE ×3 (08:21→08:40)
[2022-10-02] MEDS ORDERED: heparin 1,000 UNITS/NS 500ml 0 ML ONE (08:21)
[2022-10-02] MEDS ORDERED: fentaNYL/PF 50MCG/1 ML 2ML syringe ONE ×2 (08:21→09:13)
[2022-10-02] MEDS ORDERED: midazolam 1 mg/ML 2ml injection ONE ×2 (08:21→09:12)
[2022-10-02 08:28] LABS: BASOPHILS % (AUTO) 0.9 % (0-1); EOSINOPHILS # (AUTO) 0.2 X10'3 (0-0.9); HEMATOCRIT 32.2 % (42.0-52.0); HEMOGLOBIN 10.3 g/dl (14.0-17.9); LYMPHOCYTES # (AUTO) 1.3 X10'3 (1.1-4.8); LYMPHOCYTES % (AUTO) 22.3 % (21-51); MEAN CORPUSCULAR HEMOGLOBIN 30.2 PG (27.0-31.0); MEAN CORPUSCULAR VOLUME 94.3 FL (78-98); MEAN PLATELET VOLUME 7.7 FL (7.4-10.4); MONOCYTES # (AUTO) 0.8 X10'3 (0-0.9); MONOCYTES % (AUTO) 14.2 % (2-12); NEUTROPHILS # (AUTO) 3.3 X10'3 (1.8-7.7); NEUTROPHILS % (AUTO) 58.6 % (42-75); PLATELET COUNT 310 X10'3 (140-440); RED BLOOD COUNT 3.42 X10'6 (4.70-6.10); RED CELL DISTRIBUTION WIDTH 16.3 % (11.5-14.5); WHITE BLOOD COUNT 5.6 X10'3 (4.5-11.0)
[2022-10-02] MEDS ORDERED: heparin 1,000 UNITS/NS 500ml 500 ML ONE (08:30)
[2022-10-02 08:38] LABS: ANION GAP 9 (8-16); BLOOD UREA NITROGEN 51 MG/DL (7-18); BUN/CREATININE RATIO 7.3 (5.4-32.0); CALCIUM 8.9 MG/DL (8.5-10.1); CHLORIDE 103 MMOL/L (99-107); CREATININE 6.94 MG/DL (0.60-1.10); GLUCOSE 106 MG/DL (70-104); POTASSIUM 4.1 MMOL/L (3.5-5.1); SODIUM 139 MMOL/L (135-145); eGFR 8 ML/MIN
[2022-10-02] MEDS ORDERED: heparin 1,000unit/ml 10ml vial 10 ML ONE (08:52)
[2022-10-02 10:07] VITALS: BP 156/66
[2022-10-02 10:22] VITALS: BP 135/98
[2022-10-02 10:37] VITALS: BP 96/58
[2022-10-02 10:52] VITALS: BP 165/81
== END 2022-10-02 11:10 | disposition home or self-care (01) ==
LOC: SSTAY O 06:31
PROVIDERS: ATTEND Radiology Vascular & Interventional Radiology
DX: T82.858A Stenosis of other vascular prosthetic devices, implants and grafts, initial encounter (principal); N18.9 Chronic kidney disease, unspecified; Y83.8 Other surgical procedures as the cause of abnormal reaction of the patient, or of later complication, without mention of misadventure at the time of the procedure; Z79.899 Other long term (current) drug therapy; Z79.01 Long term (current) use of anticoagulants; Z85.038 Personal history of other malignant neoplasm of large intestine; Z86.73 Personal history of transient ischemic attack (TIA), and cerebral infarction without residual deficits; Z90.49 Acquired absence of other specified parts of digestive tract; Z98.890 Other specified postprocedural states
CPT/HCPCS: 36415; 36581; 36902; 77001; 80048; 85025; 85610; 99152; 99153; C1725; C1750; C1769; C1894; J1644; J2250; J3010; J7030; Q9967; A9270

== ENCOUNTER 2022-11-19 07:46 | Day surgery (SDC) | payer MEDICARE, MEDICAID ==
[~2022-11-19] VITALS: Ht 172.7 cm; Wt 87.9 kg
[~2022-11-19 07:46] MED LIST changes: +CLOP75TA34 PO; +FERR325T28 PO; +FOLI1TAB34 PO; +HYDR-3965 PO; +SODI650T29 PO
[2022-11-19 08:10] VITALS: BP 149/76
[2022-11-19] MEDS ORDERED: normal saline 1000ml 1,000 ML IV PRN (08:10)
[2022-11-19] MEDS ORDERED: heparin 1,000unit/ml 10ml vial 10 ML ONE (08:37)
[2022-11-19] MEDS ORDERED: midazolam 1 mg/ML 2ml injection ONE (08:37)
[2022-11-19] MEDS ORDERED: LIDOcaine 1% 30ml preserv. free vial ONE (08:37)
[2022-11-19] MEDS ORDERED: FENTANYL CITRATE/PF 50 MCG/1 ML VIAL ONE (08:37)
[2022-11-19 08:40] LABS: BASOPHILS # (AUTO) 0.1 X10'3 (0-0.2); BASOPHILS % (AUTO) 0.7 % (0-1); EOSINOPHILS # (AUTO) 0.1 X10'3 (0-0.9); EOSINOPHILS % (AUTO) 1.4 % (0-6); HEMATOCRIT 29.6 % (42.0-52.0); HEMOGLOBIN 9.4 g/dl (14.0-17.9); LYMPHOCYTES % (AUTO) 12.7 % (21-51); MEAN CORPUSCULAR HEMOGLOBIN 29.7 PG (27.0-31.0); MEAN CORPUSCULAR HGB CONC 31.7 g/dL (33.0-36.5); MEAN CORPUSCULAR VOLUME 93.7 FL (78-98); MEAN PLATELET VOLUME 7.7 FL (7.4-10.4); MONOCYTES # (AUTO) 0.7 X10'3 (0-0.9); MONOCYTES % (AUTO) 8.9 % (2-12); NEUTROPHILS # (AUTO) 6.3 X10'3 (1.8-7.7); NEUTROPHILS % (AUTO) 76.3 % (42-75); PLATELET COUNT 257 X10'3 (140-440); RED BLOOD COUNT 3.16 X10'6 (4.70-6.10); RED CELL DISTRIBUTION WIDTH 17.9 % (11.5-14.5); WHITE BLOOD COUNT 8.2 X10'3 (4.5-11.0)
[2022-11-19] MEDS ORDERED: iohexol 300mg/ml 100ml inj. ONE (09:18)
[2022-11-19 09:30] VITALS: BP 135/54
[2022-11-19 09:45] VITALS: BP 126/52
[2022-11-19 10:00] VITALS: BP 132/56
[2022-11-19 10:15] VITALS: BP 150/66
[2022-11-19 10:21] VITALS: BP 141/72
== END 2022-11-19 10:32 | disposition home or self-care (01) ==
LOC: SSTAY O 07:46
PROVIDERS: ATTEND Radiology Vascular & Interventional Radiology
DX: T82.49XA Other complication of vascular dialysis catheter, initial encounter (principal); Y83.8 Other surgical procedures as the cause of abnormal reaction of the patient, or of later complication, without mention of misadventure at the time of the procedure; Z79.01 Long term (current) use of anticoagulants; Z86.73 Personal history of transient ischemic attack (TIA), and cerebral infarction without residual deficits; N18.9 Chronic kidney disease, unspecified; Z85.038 Personal history of other malignant neoplasm of large intestine; Z90.49 Acquired absence of other specified parts of digestive tract; Z98.890 Other specified postprocedural states; Z79.899 Other long term (current) drug therapy
CPT/HCPCS: 36415; 36581; 75827; 77001; 85025; 85610; C1750; C1769; C1894; J1644; J2250; J3010; J3490; J7030; Q9967; A4620; A9270